=== PATIENT | male | born 1980 | race Caucasian/White ===

== ENCOUNTER 2020-10-19 10:58 | Emergency (ER) | payer OTHER, SELFPAY ==
--- NOTE | ~2020-10-19 | XR_ITS ---
EXAMINATION: XR ribs LT 2V w CXR 2V INDICATION: Left chest pain TECHNIQUE: A frontal view of the chest and 3 views of the left ribs were obtained. COMPARISON: None. FINDINGS: There are nondisplaced anterolateral fractures of the left seventh and eighth ribs. The yesenia gs are free of acute opacities. There is no pleural effusion or pneumothorax. The cardiomediastinal s ilhouette is normal. IMPRESSION: 1. Nondisplaced fractures of the left seventh and eighth ribs. Reviewed, dictated and finalized at location A.
[2020-10-19 11:15] VITALS: BP 171/99; PULSE 69; RESP 18; TEMP 36.2; O2SAT 97
[2020-10-19 11:44] VITALS: BP 140/90
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
[2020-10-19] MEDS: TETANUS,DIPHTHERIA,AC PERTUSSIS ADULT (0.5 ML) BOOSTRIX IM (12:02)
== END 2020-10-19 12:25 | disposition home or self-care (01) ==
PROVIDERS: Emergency Provider Nurse Practitioner
DX: S22.42XA Multiple fractures of ribs, left side, initial encounter for closed fracture (principal); S80.812A Abrasion, left lower leg, initial encounter; V18.4XXA Pedal cycle driver injured in noncollision transport accident in traffic accident, initial encounter; Z23 Encounter for immunization
CPT/HCPCS: 71046; 71100; 90471; 90715; 99213; G0463

== ENCOUNTER 2020-11-06 16:15 | Outpatient (CLI) | payer OTHER, SELFPAY | END 2020-11-06 16:16 | disposition home or self-care (01) | LOC: ANHCOVIDVC 16:15 | PROVIDERS: PCP Nurse Practitioner | DX: Z23 Encounter for immunization (principal) | CPT/HCPCS: 0001A; 91300 ==

== ENCOUNTER 2020-11-26 15:45 | Outpatient (CLI) | payer OTHER, SELFPAY | END 2020-11-26 15:46 | disposition home or self-care (01) | LOC: ANHCOVIDVC 15:45 | PROVIDERS: PCP Nurse Practitioner | DX: Z23 Encounter for immunization (principal) | CPT/HCPCS: 0002A; 91300 ==